=== PATIENT | female | born 1985 | race Asian ===

== ENCOUNTER 2016-12-29 12:00 | Inpatient (IN) | payer BC ==
[2016-12-29] MEDS ORDERED: FEROSUL325 M1 PO (13:01)
[2016-12-29] MEDS ORDERED: PRENA1 CHEW TA1.4 M1 PO (13:01)
[2016-12-29 14:01] LABS: BASO % 0.2 % (0-2); EOS % 0.7 % (0-7); EOSINOPHIL ABSOLUTE COUNT 0.1 tho/cmm (0.0-0.7); HCT-HEMATOCRIT 40.3 % (34.0-49.0); HGB-HEMOGLOBIN 13.3 gm/dl (12.0-15.5); IMMATURE GRANULOCYTES ABSOLUTE 0.15 tho/cmm (0-0.03); IMMATURE GRANULOCYTES PERCENT 1.3 % (0-0.3); LYMPH % 16.2 % (20-45); LYMPH ABSOLUTE COUNT 1.9 tho/cmm (0.8-4.5); MCH (MEAN CORPUSCULAR HGB) 27.9 pg (28.0-32.0); MCV (MEAN CELL VOLUME) 84.7 fl (82.0-96.0); MEAN PLATELET VOLUME 11.7 cmc (9.4-12.4); MONO % 4.5 % (0-12); MONOCYTE ABSOLUTE COUNT 0.5 tho/cmm (0.0-1.2); NEUTROPHIL ABSOLUTE COUNT 9.3 tho/cmm (1.6-8.0); NEUTROPHIL-AUTOMATED 9.3 tho/cmm (1.6-8.0); NEUTROPHILS % 77.1 % (40-80); PLATELET COUNT 206 tho/cmm (150-450); RED BLOOD COUNT 4.76 mil/cmm (4.00-5.20); RED CELL DISTRIBUTION WIDTH 16.1 % (12.4-16.4)
[2016-12-30] MEDS ORDERED: PULMICORT FLEX90 MCG INH (04:57)
[2016-12-30 14:51] LABS: BASO % 0.1 % (0-2); HCT-HEMATOCRIT 32.9 % (34.0-49.0); HGB-HEMOGLOBIN 10.9 gm/dl (12.0-15.5); IMMATURE GRANULOCYTES ABSOLUTE 0.12 tho/cmm (0-0.03); IMMATURE GRANULOCYTES PERCENT 0.5 % (0-0.3); LYMPH % 8.7 % (20-45); LYMPH ABSOLUTE COUNT 2.1 tho/cmm (0.8-4.5); MCH (MEAN CORPUSCULAR HGB) 27.9 pg (28.0-32.0); MCHC MEAN CORPUSCULAR HGB CONC 33.1 % (32.0-36.0); MCV (MEAN CELL VOLUME) 84.4 fl (82.0-96.0); MEAN PLATELET VOLUME 11.3 cmc (9.4-12.4); MONO % 6.7 % (0-12); MONOCYTE ABSOLUTE COUNT 1.6 tho/cmm (0.0-1.2); NEUTROPHIL ABSOLUTE COUNT 20.4 tho/cmm (1.6-8.0); NEUTROPHIL-AUTOMATED 20.4 tho/cmm (1.6-8.0); PLATELET COUNT 190 tho/cmm (150-450); RED CELL DISTRIBUTION WIDTH 16.2 % (12.4-16.4)
[2016-12-30 14:52] LABS: WHITE BLOOD COUNT 24.3 tho/cmm (4.0-10.0)
[2016-12-31 08:17] LABS: BASO % 0.1 % (0-2); EOS % 0.5 % (0-7); EOSINOPHIL ABSOLUTE COUNT 0.1 tho/cmm (0.0-0.7); HCT-HEMATOCRIT 33.2 % (34.0-49.0); HGB-HEMOGLOBIN 10.8 gm/dl (12.0-15.5); LYMPH % 12.6 % (20-45); LYMPH ABSOLUTE COUNT 2.4 tho/cmm (0.8-4.5); MCH (MEAN CORPUSCULAR HGB) 27.8 pg (28.0-32.0); MCHC MEAN CORPUSCULAR HGB CONC 32.5 % (32.0-36.0); MCV (MEAN CELL VOLUME) 85.6 fl (82.0-96.0); MEAN PLATELET VOLUME 12.1 cmc (9.4-12.4); MONO % 5.5 % (0-12); MONOCYTE ABSOLUTE COUNT 1.1 tho/cmm (0.0-1.2); NEUTROPHIL ABSOLUTE COUNT 15.7 tho/cmm (1.6-8.0); NEUTROPHIL-AUTOMATED 15.7 tho/cmm (1.6-8.0); NEUTROPHILS % 81.3 % (40-80); PLATELET COUNT 204 tho/cmm (150-450); RED BLOOD COUNT 3.88 mil/cmm (4.00-5.20); RED CELL DISTRIBUTION WIDTH 16.3 % (12.4-16.4); WHITE BLOOD COUNT 19.3 tho/cmm (4.0-10.0)
--- NOTE | 2016-12-31 15:45 | NUR ---
1445 DR OLIVER TREVINO NOTIFIED OF PTS LOW BPS, PULSE, LAB RESULTS, & ASSESSMENTS. MD STATES CONTINUE TO WATCH. 1535 DR FAITH RETURNS CALL MESSAGE LEFT @1447. NOTIFIED OF PT LOW BPS, PULSE, ASYMPTOMATIC, ASSESSMENTS, AND LAB RESULTS. NEW ORDERS GIVEN.
[2017-01-01 07:03] LABS: BASO % 0.2 % (0-2); EOS % 0.8 % (0-7); EOSINOPHIL ABSOLUTE COUNT 0.1 tho/cmm (0.0-0.7); HCT-HEMATOCRIT 33.2 % (34.0-49.0); HGB-HEMOGLOBIN 10.9 gm/dl (12.0-15.5); IMMATURE GRANULOCYTES ABSOLUTE 0.07 tho/cmm (0-0.03); IMMATURE GRANULOCYTES PERCENT 0.6 % (0-0.3); LYMPH % 22.3 % (20-45); LYMPH ABSOLUTE COUNT 2.6 tho/cmm (0.8-4.5); MCH (MEAN CORPUSCULAR HGB) 27.9 pg (28.0-32.0); MCHC MEAN CORPUSCULAR HGB CONC 32.8 % (32.0-36.0); MCV (MEAN CELL VOLUME) 84.9 fl (82.0-96.0); MEAN PLATELET VOLUME 11.7 cmc (9.4-12.4); MONO % 4.5 % (0-12); MONOCYTE ABSOLUTE COUNT 0.5 tho/cmm (0.0-1.2); NEUTROPHIL ABSOLUTE COUNT 8.4 tho/cmm (1.6-8.0); NEUTROPHIL-AUTOMATED 8.4 tho/cmm (1.6-8.0); NEUTROPHILS % 71.6 % (40-80); PLATELET COUNT 228 tho/cmm (150-450); RED BLOOD COUNT 3.91 mil/cmm (4.00-5.20); RED CELL DISTRIBUTION WIDTH 16.5 % (12.4-16.4); WHITE BLOOD COUNT 11.7 tho/cmm (4.0-10.0)
[2017-01-01] MEDS ORDERED: IBUPROFEN800 M1 PO (11:17)
== END 2017-01-01 15:48 | DRG 775 ==
LOC: LDR 12:00 → OBGE 12-30 06:45
PROVIDERS: ADMIT Obstetrics & Gynecology
PROC: 10907ZC Drainage of Amniotic Fluid, Therapeutic from Products of Conception, Via Natural or Artificial Opening (ICD-10-PCS; 2016-12-29)
PROC: 10D07Z6 Extraction of Products of Conception, Vacuum, Via Natural or Artificial Opening (ICD-10-PCS; principal; 2016-12-30)
PROC: 0KQM0ZZ Repair Perineum Muscle, Open Approach (ICD-10-PCS; 2016-12-30)
DX: O34.211 Maternal care for low transverse scar from previous cesarean delivery (principal); J45.909 Unspecified asthma, uncomplicated; O70.1 Second degree perineal laceration during delivery; Z3A.40 40 weeks gestation of pregnancy; Z37.0 Single live birth; O99.513 Diseases of the respiratory system complicating pregnancy, third trimester
CPT/HCPCS: J2590